=== PATIENT | male | born 1975 | race Caucasian/White ===

== ENCOUNTER 2017-12-05 12:47 | Emergency (ER) | payer OTHER ==
[~2017-12-05] VITALS: Ht 167.6 cm; Wt 86.2 kg
--- OUTSIDE RECORDS SUMMARY | ~2017-12-05 | XMS | Clinical Summary ---
Demographics + + + | Address | [address] | | | [place] [address] | + + + | Home Phone | | + + + | Preferred Language | Unknown | + + + | Marital Status | | + + + | Mandaeism Affiliation | Unknown | + + + | Race | Unknown | + + + | Ethnic Group | Unknown | + + + Author + + + | Author | [facility] | | | and [place] | + + + | Organization | [facility] | | | and [place] | + + + | Address | Unknown | + + + | Phone | Unavailable | + + + Care Team Providers + +------+ + | Care Visual Arts Teacher Name | Role | Phone | + +------+ + PP | Unavailable | + +------+ + Allergies No Known Allergies Current Medications + + +-------+---------+------+------+-------+ | Prescription | Sig. | Disp. | Refills | Star | End | Statu | | | | | | t | Date | s | | | | | | Date | | | + + +-------+---------+------+------+-------+ | zolpidem (AMBIEN) | Take 10 mg by mouth | | | 12/21 | | Activ | | 10 mg tablet | nightly as needed. 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 | | + + + Social History + +-------+ +--------+------+ | Tobacco Use | Types | Packs/Day | Years | Date | | | | | Used | | + +-------+ +--------+------+ | Never Assessed | | | | | + +-------+ +--------+------+ + + + | Sex Assigned at | Date Recorded | | | | + + + | Not on file | | + + + Last Filed Vital Signs + + + + | Vital Sign | Reading | Time Taken | + + + + | Blood Pressure | 108/64 | 09/21/2009 0000 PDT | + + + + | Pulse | - | - | + + + + | Temperature | - | - | + + + + | Respiratory Rate | - | - | + + + + | Oxygen Saturation | - | - | + + + + | Inhaled Oxygen | - | - | | Concentration | | | + + + + | Weight | 83.6 kg (184 lb 6.4 | 09/21/2009 0000 PDT | | | oz) | | + + + + | Height | 167.6 cm (5' 6") | 07/06/2009 0000 PDT | + + + + | Body Mass Index | 29.76 | 09/21/2009 0000 PDT | + + + + Plan of Treatment + + + + + | Health Maintenance | Due Date | Last Done | Comments | + + + + + | Vaccine: | | | | | Dtap/Tdap/Td (1 - | 3 | | | | Tdap) | | | | + + + + + | Vaccine: Influenza | | | | | (#1) | 8 | | | + + + + + Results Not on filefrom Last 3 Months
--- OUTSIDE RECORDS SUMMARY | ~2017-12-05 | XMS | Clinical Summary ---
Demographics + + + | Address | [address] | | | [place] [address] | + + + | Home Phone | | + + + | Preferred Language | Unknown | + + + | Marital Status | | + + + | Rastafari Affiliation | LDS | + + + | Race | White | + + + | Ethnic Group | Not or | + + + Author + + + | Author | [facility] | + + + | Organization | [facility] | + + + | Address | Unknown | + + + | Phone | Unavailable | + + + Support + + + + + | Name | Relationship | Address | Phone | + + + + + | DINA GOMES | ECON | [address] | | | | | [place] | | | | | [address] | | + + + + + Care Team Providers + +------+ + | Care Upkeep Worker Name | Role | Phone | + +------+ + | Dante Genao MD | PP | | + +------+ + Source Comments GARY is fully live on both [facility] and [facility] InPatient.[facility] Allergies No Known Allergies Current Medications + + +--------+---------+------+------+-------+ | Prescription | Sig. | Disp. | Refills | Star | End | Statu | | | | | | t | Date | s | | | | | | Date | | | + + +--------+---------+------+------+-------+ | zolpidem 10 mg | Take 10 mg by mouth | | | | | Activ | | oral tablet | once daily at | | | | | e | | | bedtime as needed | | | | | | | | for sleep. | | | | | | + + +--------+---------+------+------+-------+ | | Take 1 tablet by | 15 | 0 | 03/2 | | Activ | | HYDROcodone-acetamin | mouth every four | tablet | | 4/20 | | e | | ophen (NORCO) 5-325 | hours as needed (for | | | 17 | | | | mg oral tablet | pain.). Take every | | | | | | | | 4-6 hours as needed. | | | | | | | | Not to exceed 8 in | | | | | | | | 24 hours/ n | | | | | | + + +--------+---------+------+------+-------+ Active Problems + + + | Problem | Noted Date | + + + | S/P knee surgery | 12/20/2015 | + + + | Acute cartilage injury of knee | 12/08/2015 | + + + | Acute pain of right knee | 12/05/2015 | + + + Family History + +------+--------+ + | Relation | Name | Status | Comments | + +------+--------+ + Social History + +-------+ +--------+------+ | Tobacco Use | Types | Packs/Day | Years | Date | | | | | Used | | + +-------+ +--------+------+ | Never Smoker | | | | | + +-------+ +--------+------+ + + +---------+ + | Alcohol Use | Drinks/We | oz/Week | Comments | | | ek | | | + + +---------+ + | No | 0 | 0.0 | | | | Standard | | | | | drinks or | | | | | | | | | | equivalen | | | | | t | | | + + +---------+ + + + + | Sex Assigned at | Date Recorded | | | | + + + | Not on file | | + + + Last Filed Vital Signs + + + + | Vital Sign | Reading | Time Taken | + + + + | Blood Pressure | 112/62 | 12/08/2015 3:52 PM PDT | + + + + | Pulse | 76 | 12/08/2015 3:52 PM PDT | + + + + | Temperature | 36.9 C (98.4 F) | 12/08/2015 2:30 PM PDT | + + + + | Respiratory Rate | 12 | 12/08/2015 3:52 PM PDT | + + + + | Oxygen Saturation | 96% | 12/08/2015 3:52 PM PDT | + + + + | Inhaled Oxygen | - | - | | Concentration | | | + + + + | Weight | 86.6 kg (191 lb) | 12/08/2015 8:17 AM PDT | + + + + | Height | 167.6 cm (5' 5.98") | 12/08/2015 8:17 AM PDT | + + + + | Body Mass Index | 30.84 | 12/08/2015 8:17 AM PDT | + + + + Plan of Treatment + + + + + | Health Maintenance | Due Date | Last Done | Comments | + + + + + | INFLUENZA VACCINE | | | | | (FLU SHOT) | 8 | | | + + + + + Implants + +------+--------+ +--------+--------+--------+ | Implanted | Type | Area | Manufacture | Device | Expira | Model | | | | | r | | tion | / | | | | | | Identi | Date | Serial | | | | | | fier | | / Lot | + +------+--------+ +--------+--------+--------+ | Femoral Adan Condyle Medial | | Right: | | | 12/14/ | [id number] | | Fresch AsepticImplanted: Qty: | | Knee | | | 2016 | 01 / | | 1 on 12/08/2015 by Nikolai, | | | | | | /[id number] | | Waqas Muhammad MD,PhD | | | | | | [phone] | + +------+--------+ +--------+--------+--------+ Results Not on filefrom Last 3 Months Insurance +-------+--------+ +------+ + + | Payer | Benefi | Subscriber | Type | Phone | Address | | | t Plan | ID | | | | | | / | | | | | | | Group | | | | | +-------+--------+ +------+ + + | MODA | MODA | xxxxxxxxx | PPO | [phone] | [address] [phone] | | | [address] | | [phone] | [place] [address] | | | [place] | | | | | +-------+--------+ +------+ + + + +--------+ +--------+ + + | Guarantor Name | Accoun | Relation to | Date | Phone | Billing Address | | | t Type | Patient | of | | | | | | | | | | + +--------+ +--------+ + + | PATRICIA GOMES | Person | Self | [birth year] | Home: | [address] | | | al/Fam | | 1975 | [phone] | [address] | | | alonso | | | [phone] | [place] [address] | + +--------+ +--------+ + +
--- OUTSIDE RECORDS SUMMARY | ~2017-12-05 | XMS | Clinical Summary ---
Demographics + + + | Address | [address] | | | [place] [address] | + + + | Home Phone | | + + + | Preferred Language | Unknown | + + + | Marital Status | Unknown | + + + | Sikhism Affiliation | Unknown | + + + | Race | Unknown | + + + | Ethnic Group | Unknown | + + + Author + + + | Author | [facility] | + + + | Organization | [facility] | + + + | Address | Unknown | + + + | Phone | Unavailable | + + + Support + + +---------+ + | Name | Relationship | Address | Phone | + + +---------+ + | Jaz Gomes | ECON | Unknown | | + + +---------+ + Care Team Providers + +------+ + | Care Automation Architect Name | Role | Phone | + +------+ + | Bert Martinez MD | PP | | + +------+ + Allergies + + + + + + | Active Allergy | Reactions | Severity | Noted | Comments | | | | | Date | | + + + + + + | Penicillins | Other (See Comments) | Medium | 12/12/19 | Unknown reaction | | | | | 17 | | + + + + + + Current Medications + + +-------+---------+------+------+-------+ | Prescription | Sig. | Disp. | Refills | Star | End | Statu | | | | | | t | Date | s | | | | | | Date | | | + + +-------+---------+------+------+-------+ | FLUoxetine | daily. | | | 11/20 | | Activ | | (PROZAC) 40 MG | | | | 10/09 | | e | | capsule | | | | 17 | | | + + +-------+---------+------+------+-------+ | | Take by mouth. | | | 03/2 | | Activ | | HYDROcodone-acetamin | | | | 08/09 | | e | | ophen (NORCO) 5-325 | | | | 17 | | | | MG per tablet | | | | | | | + + +-------+---------+------+------+-------+ | buPROPion | | | | 01/20 | | Activ | | (WELLBUTRIN XL) 300 | | | | 9/20 | | e | | MG 24 hr tablet | | | | 17 | | | + + +-------+---------+------+------+-------+ | eszopiclone | | | | 12/0 | | Activ | | (LUNESTA) 3 MG TABS | | | | 1/20 | | e | | | | | | 17 | | | + + +-------+---------+------+------+-------+ | LORazepam (ATIVAN) | | | | 12/2 | | Activ | | 1 MG tablet | | | | 0/20 | | e | | | | | | 17 | | | + + +-------+---------+------+------+-------+ + + +-------+ +------+------+-------+ | Hospital, Clinic, or | Ordered | Route | Frequency | Star | End | Statu | | Other Facility | Dose | | | t | Date | s | | Administered | | | | Date | | | | Medication | | | | | | | + + +-------+ +------+------+-------+ | triamcinolone | 40 mg | IM | Once | 04/22 | | Activ | | acetonide | | | | 0/20 | | e | | (KENALOG-40) | | | | 18 | | | | injection 40 | | | | | | | | mgIndications: Right | | | | | | | | knee pain, | | | | | | | | unspecified | | | | | | | | chronicity, | | | | | | | | 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 | | | | | | | + + +-------+ +------+------+-------+ | bupivacaine (PF) | 10 mL | IX | Once | 04/22 | | Activ | | (MARCAINE) 0.25 % | | | | 0/20 | | e | | injection 10 | | | | 18 | | | | mLIndications: Right | | | | | | | | knee pain, | | | | | | | | unspecified | | | | | | | | chronicity, | | | | | | | | 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 | | | | | | | + + +-------+ +------+------+-------+ Active Problems + + + | Problem | Noted Date | + + + | Right knee pain | 12/12/2016 | + + + + + | Overview: Added automatically from request for surgery [id number] | + + Family History + + +------+ + | Medical History | Relation | Name | Comments | + + +------+ + | Bipolar disorder | Father | | | + + +------+ + | Depression | Mother | | | + + +------+ + + +------+--------+ + | Relation | Name | Status | Comments | + +------+--------+ + | Father | | Alive | | + +------+--------+ + | Mother | | Alive | | + +------+--------+ + Social History + +-------+ +--------+------+ | Tobacco Use | Types | Packs/Day | Years | Date | | | | | Used | | + +-------+ +--------+------+ | Never Smoker | | | | | + +-------+ +--------+------+ + +---+---+---+ | Smokeless Tobacco: | | | | | Never Used | | | | + +---+---+---+ + + +---------+ + | Alcohol Use | Drinks/We | oz/Week | Comments | | | ek | | | + + +---------+ + | No | | | | + + +---------+ + + + + | Sex Assigned at | Date Recorded | | | | + + + | Not on file | | + + + Last Filed Vital Signs + + + + | Vital Sign | Reading | Time Taken | + + + + | Blood Pressure | 118/78 | 08/27/2017 8:15 AM PDT | + + + + | Pulse | 78 | 08/27/2017 8:15 AM PDT | + + + + | Temperature | 36.6 C (97.8 F) | 03/08/2017 3:52 PM PST | + + + + | Respiratory Rate | 16 | 03/08/2017 3:52 PM PST | + + + + | Oxygen Saturation | 98% | 08/27/2017 8:15 AM PDT | + + + + | Inhaled Oxygen | - | - | | Concentration | | | + + + + | Weight | 82.1 kg (181 lb) | 08/27/2017 8:15 AM PDT | + + + + | Height | 167.6 cm (5' 6") | 08/27/2017 8:15 AM PDT | + + + + | Body Mass Index | 29.21 | 08/27/2017 8:15 AM PDT | + + + + [...] Not on filefrom Last 3 Months Insurance + +--------+ +------+-------+---------+ | Payer | Benefi | Subscriber | Type | Phone | Address | | | t Plan | ID | | | | | | / | | | | | | | Group | | | | | + +--------+ +------+-------+---------+ | [employer] | [employer]DS | [id number] | | | | | | HEALTH | | | | | | | PLAN | | | | | + +--------+ +------+-------+---------+ + +--------+ +--------+ + + | Guarantor Name | Accoun | Relation to | Date | Phone | Billing Address | | | t Type | Patient | of | | | | | | | | | | + +--------+ +--------+ + + | PATRICIA GOMES | Person | Self | [birth year] | Home: | [address] | | | al/Fam | | 1975 | [phone] | [address] [employer] | | | alonso | | | [phone] | [place] [address] | + +--------+ +--------+ + +
--- OUTSIDE RECORDS SUMMARY | ~2017-12-05 | XMS | Clinical Summary ---
Demographics + + + | Address | [address] | | | [place] [address] | + + + | Home Phone | | + + + | Preferred Language | Unknown | + + + | Marital Status | Unknown | + + + | Congregational Affiliation | Unknown | + + + | Race | Unknown | + + + | Ethnic Group | Unknown | + + + Author + + + | Author | [facility] | + + + | Organization | [facility] | + + + | Address | Unknown | + + + | Phone | Unavailable | + + + Support + + +---------+ + | Name | Relationship | Address | Phone | + + +---------+ + | Jaz Gomes | ECON | Unknown | | + + +---------+ + Care Team Providers + +------+ + | Care Neon Sign Worker Name | Role | Phone | [...] Overview: Added automatically from request for surgery [id number] | + + Family History + + [...] | [employer] | ODS | [id number] | | | | | | HEALTH [...] | Self | [birth year] | Home: | [address] | | | al/Fam | | 1975 | [phone] | [address] [employer] | | | alonso | | | [phone] | [place] [address] | + +--------+ +--------+ + +
--- OUTSIDE RECORDS SUMMARY | ~2017-12-05 | XMS | Clinical Summary ---
Demographics + + + | Address | [address] | | | [place] [address] | + + + | Home Phone | | + + + | Preferred Language | Unknown | + + + | Marital Status | | + + + | Bahai Affiliation | LDS | + + + [...] + | DINA GOMES | ECON | [address] | | | | | [place] | | | | | [address] | | + + + + + Care Team Providers + +------+ + | Care Senior Research Scientist Name | Role | Phone | + +------+ + | Dante Genao MD | PP | | + +------+ + Source Comments GARY is fully live on both [facility] and [facility] InPatient.[facility] Allergies No Known Allergies Current Medications + [...] | Right: | | | 12/14/ | [id number] | | Fresch AsepticImplanted: Qty: | | Knee | | | 2016 | 01 / | | 1 on 12/08/2015 by Nikolai, | | | | | | /[id number] | | Waqas Muhammad MD,PhD | | [...] [phone] | PPO | [phone] | [address] [phone] | | | [address] | | | [phone] | [place] [address] | | | [employer] | | | [...] | Self | [birth year] | Home: | [address] | | | al/Fam | | 1975 | [phone] | [address] | | | alonso | | | [phone] | [place] [address] | + +--------+ +--------+ + +
--- OUTSIDE RECORDS SUMMARY | ~2017-12-05 | XMS | Clinical Summary ---
Demographics + + + | Address | [address] | | | [place] [address] | + + + | Home Phone | | + + + | Preferred Language | Unknown | + + + | Marital Status | | + + + | Voodoo Affiliation | Unknown | + + + | Race | Unknown | + + + | Ethnic Group | Unknown | + + + Author + + + | Author | [facility] | | | and [place] | + + + | Organization | [facility] | | | and [place] | + + + | Address | Unknown | + + + | Phone | Unavailable | + + + Care Team Providers + +------+ + | Care Manager Billing Name | Role | Phone | + [...]
[~2017-12-05 12:47] MED LIST: IBUPROFEN200 MG PO; OXYCODONE HCL5 M1 PO
[2017-12-05] MEDS ORDERED: WELLBUTRIN SR150 MG PO (12:57)
[2017-12-05] MEDS ORDERED: NORCO 5-325 TA1 EACH PO (12:58)
[2017-12-05] MEDS ORDERED: TRAZODONE HCL100 MG PO (12:58)
== END 2017-12-05 13:06 | disposition home or self-care (01) ==
LOC: ED 12:47
DX: S61.212A Laceration without foreign body of right middle finger without damage to nail, initial encounter (principal); W33.01XA Accidental discharge of shotgun, initial encounter